=== PATIENT | female | born 1955 | race Caucasian/White ===

== ENCOUNTER 2020-11-17 10:00 | Emergency (ER) | payer BC, OTHER ==
[2020-11-17] MEDS ORDERED: Ketorolac 30 MG/ML SDV IM ONE (11:25)
[2020-11-17] MEDS ORDERED: Cyclobenzaprine 10 MG Tab PO ONE (11:25)
--- NOTE | 2020-11-17 11:28 | EDM.PDOC ---
ED HPI GENERAL MEDICAL PROBLEM - General Chief Complaint: Back Pain or Injury Stated Complaint: FELL AND NOW HAS BACK PAIN AND L HAND PAIN Time Seen by Provider: 11/17/20 11:22 Source of Information: Reports: Patient, Family, RN Notes Reviewed History Limitations: Reports: No Limitations - History of Present Illness INITIAL COMMENTS - FREE TEXT/NARRATIVE: 65-year-old female presents emergency department day complaint of back pain and right hand pain, she injured herself about 3 days ago when she fell at home she was consuming alcohol at the time. She initially presented to the clinic but was referred to the emergency department because of her level of pain. She states she is breathing okay but it hurts to take a deep breath back pain is positional and the hand has full range of motion but is painful does have a history of compression fracture she recently moved here from the [facility]. Lower Back Pain Score (Numeric/FACES): 10 - Related Data Allergies Allergy/AdvReac Type Severity Reaction Status Date / Time No Known Allergies Allergy Verified 11/17/20 11:08 Home Meds: Home Meds Calcium Carb/Vitamin D3/Vit K1 [Citracal Soft Chew] 630 mg PO ASDIRECTED 10/14/15 [History] Cholecalciferol (Vitamin D3) [Vitamin D3] 1 tab PO TID 10/14/15 [History] Cyanocobalamin (Vitamin B-12) [Vitamin B-12] 1 injection IM ASDIRECTED 10/14/15 [History] Multivitamin [Multivitamins] 1 tab PO BID 10/14/15 [History] Topiramate 2 tab PO BID 10/14/15 [History] Venlafaxine [Effexor] 1 tab PO DAILY 10/14/15 [History] hydroCHLOROthiazide [Hydrochlorothiazide] 1 tab PO DAILY 10/14/15 [History] SUMAtriptan succinate [Imitrex] 100 mg PO BID PRN 11/17/20 [History] Past Medical History Cardiovascular History: Reports: High Cholesterol [employer]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: Reports: 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, Other (See Below) 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 Musculoskeletal History: Reports: Arthritis, Back Pain, Chronic, Fracture, Osteoporosis Neurological History: Reports: Other (See Below) Other Neuro History: fx spine Oncologic (Cancer) History: Reports: Other (See Below) Other Oncologic History: skin cancer on chest - Past Surgical History HEENT Surgical History: Reports: LASIK, Tonsillectomy GI Surgical History: Reports: Bariatric Procedure, Chuck Fundoplication Female Surgical History: Reports: Hysterectomy, Tubal Ligation Neurological Surgical History: Reports: Thoracic Spine Musculoskeletal Surgical History: Reports: Shoulder Surgery, Other (See Below) Other Musculoskeletal Surgeries/Procedures:: left wrist fx repair, left wrist tendinitis with removal of scar tissue, right and left foot bunion, right forearm fx repair, Social & Family History - Tobacco Use Tobacco Use Status *Q: Never Tobacco User Second Hand Smoke Exposure: No - Caffeine Use Caffeine Use: Reports: None - Recreational Drug Use Recreational Drug Use: No ED ROS GENERAL - Review of Systems Review Of Systems: See Below Constitutional: Reports: No Symptoms HEENT: Reports: No Symptoms Respiratory: Reports: No Symptoms Cardiovascular: Reports: No Symptoms GI/Abdominal: Reports: No Symptoms Musculoskeletal: Reports: Back Pain, Hand Pain ED EXAM,LOWER BACK PAIN/INJURY - Physical Exam Exam: See Below Text/Narrative:: Examination of the left hand she has full range of motion of all digits radial pulses +2 there is some bruising which can be appreciated over the medic carpal region #5, examination of the back reveals symmetrical respirations there is no point tenderness spinally she is tender paraspinally thoracic region T10-T12 Exam Limited By: No Limitations General Appearance: Alert, WD/WN, No Apparent Distress Respiratory/Chest: No Respiratory Distress Course - Vital Signs Last Recorded V/S: Last Vital Signs Temp 97.4 F 11/17/20 11:18 Pulse 62 11/17/20 12:31 Resp 16 11/17/20 11:18 BP 115/58 L 11/17/20 12:31 Pulse Ox 97 11/17/20 12:31 - Orders/Labs/Meds Orders: Active Orders 24 hr Category Date Time Status Hand Comp Min 3V Lt [CR] Stat Exams 11/17/20 11:25 Taken Meds: Medications Discontinued Medications Generic Name Dose Route Start Last Admin Trade Name Thiago PRN Reason Stop Dose Admin Cyclobenzaprine HCl 10 mg 11/17/20 11:25 11/17/20 11:41 Cyclobenzaprine 10 Mg Tab PO 11/17/20 11:26 10 mg ONETIME ONE Administration Hydromorphone HCl 1 mg 11/17/20 12:29 11/17/20 12:49 Hydromorphone 1 Mg/Ml Syringe IM 11/17/20 12:30 1 mg ONETIME ONE Administration Ketorolac Tromethamine 30 mg 11/17/20 11:25 11/17/20 11:42 Ketorolac 30 Mg/Ml Sdv IM 11/17/20 11:26 30 mg ONETIME ONE Administration Departure - Departure Time of Disposition: 13:33 Disposition: Home, Self-Care 01 Condition: Fair Clinical Impression: Leg pain, left - Discharge Information Referrals: PCP,None [Primary Care Provider] - Forms: ED Department Discharge Additional Instructions: Keep your follow-up appointments with your primary care, general surgery and the vascular interventionalists including [facility] call return to the emergency department with worsening of symptoms Sepsis Event Note (ED) - Evaluation Sepsis Screening Result: No Definite Risk - Focused Exam Vital Signs: Vital Signs Temp Pulse Resp BP Pulse Ox 11/17/20 12:31 62 115/58 L 97 11/17/20 11:18 97.4 F 73 16 115/65 96 11/17/20 11:06 97.4 F 73 16 115/65 96 - My Orders Last 24 Hours: My Active Orders 11/17/20 11:25 Hand Comp Min 3V Lt [CR] Stat - Assessment/Plan Last 24 Hours: My Active Orders 11/17/20 11:25 Hand Comp Min 3V Lt [CR] Stat Plan: Assessment Acuity = acute Site and laterality = left leg pain Etiology = unknown Manifestations = none Location of injury = Home Lab values = ultrasound was negative for any DVT official read radiologist pending Plan I did review unofficial ultrasound results from follow-up with his primary care ongoing leg pain he does have known peripheral vascular disease he is following a vascular surgery in the [facility] as well This note was dictated using Listen Edition voice recognition software please call with any questions on syntax or grammar.
[2020-11-17] MEDS ORDERED: HYDROmorphone 1 MG/ML Syringe IM ONE (12:29)
[2020-11-17 12:31] VITALS: BP 115/58; PULSE 62
--- NOTE | 2020-11-17 13:07 | CR ---
Thoracic Spine 3V CLINICAL HISTORY: Fall, pain FINDINGS: There is some mild biconcave compression deformity of T10 of uncertain chronology. Patient has a a previous T11 vertebroplasty. There is a moderate to compression deformity of T12. Chronology is uncertain there is some mild diffuse degenerative disc changes. There is a grade 1 anterolisthesis of T4 on T5. There is mild osteophytosis. The pedicles are unremarkable. Impression: Multiple compression deformities of the lower thoracic spine T11 vertebroplasty Grade 1 anterolisthesis of T4 on T5
--- NOTE | 2020-11-17 14:09 | CR ---
Hand Comp Min 3V Lt CLINICAL HISTORY: Fall, pain FINDINGS: There is no acute fracture or dislocation of the hand. There is moderate osteoarthritic change at the base of the first metacarpal as well as scaphoid. There is appears to have had resection of the trapezium. IMPRESSION: No acute fracture Apparent resection of the trapezium with severe osteoarthritic change at the base of the first metacarpal
== END 2020-11-17 14:33 | disposition home or self-care (01) ==
LOC: JP.ED 10:00
DX: M79.605 Pain in left leg (principal); E78.00 Pure hypercholesterolemia, unspecified; Z79.899 Other long term (current) drug therapy
CPT/HCPCS: 72072; 73130; 96372; 99283; A9270; J1170; J1885

== ENCOUNTER 2021-03-12 09:42 | Emergency (ER) | payer OTHER ==
[2021-03-12 10:05] VITALS: BP 106/56; PULSE 65
--- NOTE | 2021-03-12 10:11 | EDM.PDOC ---
ED HPI GENERAL MEDICAL PROBLEM - General Chief Complaint: Chest Pain Stated Complaint: POSSIBLE SIGNS OF HEART ATTACK Time Seen by Provider: 03/12/21 10:09 Source of Information: Reports: Patient, Old Records, RN History Limitations: Reports: No Limitations - History of Present Illness INITIAL COMMENTS - FREE TEXT/NARRATIVE: 65 yo female presents after a 2nd spell in 2 weeks that were both characterized by sudden onset of CP at rest that lasted only a few minutes. These spells were not associated with nausea or SOB or diaphoresis. Today she describes that the pain went to her R jaw and L arm. She had transient R flank pain. She had a fleeting fairly severe POTTS. All of these sx's are now completely gone without any treatment. She was not seen after the first spell. She has a strong FHx of CAD with her father having an WA in his mid 60's. She is not a smoker, has no DM or HTN, has a cholesterol of 300 and an HDL of 100. She has no personal hx of CAD. Onset: Today, Sudden Onset Date: 03/12/21 Duration: Minutes:, Resolved Prior to Arrival Location: Reports: Head, Face, Neck, Chest, Back Quality: Reports: Ache (head), Pressure (chest) Severity: Moderate (chest) Improves with: Reports: Other (time) Worsens with: Reports: Other (unknown trigger) Context: Reports: Other (See HPI) Associated Symptoms: Reports: Chest Pain, Headaches. 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) Back Pain Score (Numeric/FACES): 2 - Related Data Allergies Allergy/AdvReac Type Severity Reaction Status Date / Time No Known Allergies Allergy Verified 03/12/21 10:05 Home Meds: Home Meds Calcium Carb/Vitamin D3/Vit K1 [Citracal Soft Chew] 630 mg PO ASDIRECTED 10/14/15 [History] Cholecalciferol (Vitamin D3) [Vitamin D3] 1 tab PO DAILY 10/14/15 [History] Multivitamin [Multivitamins] 1 tab PO BID 10/14/15 [History] Topiramate 50 tab PO BID 10/14/15 [History] Venlafaxine [Effexor] 75 tab PO DAILY 10/14/15 [History] hydroCHLOROthiazide [Hydrochlorothiazide] 12.5 tab PO DAILY 10/14/15 [History] SUMAtriptan succinate [Imitrex] 100 mg PO BID PRN 11/17/20 [History] Cyanocobalamin/Cobamamide [Vitamin B-12 5,000 Mcg Tab Sl] 1 tab SL DAILY 03/12/21 [History] Past Medical History Cardiovascular History: Reports: High Cholesterol 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: 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, Other (See Below) 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 Musculoskeletal History: Reports: Arthritis, Back Pain, Chronic, Fracture, Osteoporosis Neurological History: Reports: Other (See Below) Other Neuro History: fx spine Oncologic (Cancer) History: Reports: Other (See Below) Other Oncologic History: skin cancer on chest - Past Surgical History HEENT Surgical History: Reports: LASIK, Tonsillectomy GI Surgical History: Reports: Bariatric Procedure, Chuck Fundoplication Female Surgical History: Reports: Hysterectomy, Tubal Ligation Neurological Surgical History: Reports: Thoracic Spine Musculoskeletal Surgical History: Reports: Shoulder Surgery, Other (See Below) Other Musculoskeletal Surgeries/Procedures:: left wrist fx repair, left wrist tendinitis with removal of scar tissue, right and left foot bunion, right forearm fx repair, Social & Family History - Caffeine Use Caffeine Use: Reports: None ED ROS GENERAL - Review of Systems Review Of Systems: See Below Constitutional: Reports: No Symptoms. Denies: Diaphoresis HEENT: Reports: No Symptoms Respiratory: Reports: No Symptoms Cardiovascular: Reports: Chest Pain Endocrine: Reports: No Symptoms GI/Abdominal: Reports: No Symptoms. Denies: Nausea Musculoskeletal: Reports: Back Pain (R flank), Other (R jaw) Skin: Reports: No Symptoms. Denies: Diaphoresis Neurological: Reports: Headache Psychiatric: Reports: No Symptoms ED EXAM, GENERAL - Physical Exam Exam: See Below Exam Limited By: No Limitations General Appearance: Alert, WD/WN, No Apparent Distress Eye Exam: Bilateral Eye: Normal Inspection Ears: Normal External Exam, Normal Canal, Hearing Grossly Normal, Normal TMs Ear Exam: Bilateral Ear: Auricle Normal, Canal Normal, TM normal Nose: Normal Inspection, No Blood Throat/Mouth: Normal Inspection, Normal Lips, Normal Oropharynx, Normal Voice, No Airway Compromise Head: Atraumatic, Normocephalic Neck: Normal Inspection, Supple, Non-Tender Respiratory/Chest: No Respiratory Distress, Lungs Clear, Normal Breath Sounds, No Accessory Muscle Use Cardiovascular: Regular Rate, Rhythm, No Edema GI/Abdominal: Normal Bowel Sounds, Soft, Non-Tender, No Distention. No: Distended, Tender Back Exam: Normal Inspection. No: CVA Tenderness (R), CVA Tenderness (L) Extremities: Normal Inspection, Normal Range of Motion, Non-Tender, No Pedal Edema Neurological: Alert, Oriented, CN II-XII Intact, Normal Cognition, No Motor/Sensory Deficits Psychiatric: Normal Affect, Normal Mood Skin Exam: Warm, Dry, Intact, Normal Color, No Rash #1 Interpretation EKG Date: 03/12/21 Time: 10:05 Rhythm: NSR Rate (Beats/Min): 65 Hagaman: Normal P-Wave: Present QRS: Normal ST-T: Normal QT: Normal Comparison: NA - No Prior EKG Course - Vital Signs Last Recorded V/S: Last Vital Signs Temp 36.7 C 03/12/21 09:58 Pulse 65 03/12/21 09:58 Resp 16 03/12/21 09:58 BP 106/56 L 03/12/21 09:58 Pulse Ox 99 03/12/21 09:58 - Orders/Labs/Meds Orders: Active Orders 24 hr Category Date Time Status Cardiac Monitoring [RC] .As Directed Care 03/12/21 09:45 Active UA W/MICROSCOPIC [URIN] Stat Lab 03/12/21 10:33 Ordered EKG 12 Lead [EK] Routine Ther 03/12/21 09:45 Ordered Labs: Laboratory Tests 03/12/21 Range/Units 09:56 Troponin I High Sens 10.9 (<=60.3) pg/mL Meds: Medications Discontinued Medications Generic Name Dose Route Start Last Admin Trade Name Thiago PRN Reason Stop Dose Admin Aspirin 324 mg 03/12/21 10:34 Aspirin 81 Mg Tab.Chew PO 03/12/21 10:35 ONETIME ONE - Re-Assessments/Exams Free Text/Narrative Re-Assessment/Exam: 03/12/21 10:43 Declined the offer of ASA due to her hx of Sang-N-Y gastric bypass Departure - Departure Time of Disposition: 10:55 Disposition: Home, Self-Care 01 Condition: Good Clinical Impression: Atypical chest pain Instructions: Nonspecific Chest Pain, Adult, [id number] Referrals: PCP,None [Primary Care Provider] - Forms: ED Department Discharge Additional Instructions: Call [facility] on Monday morning for an appt [phone]. Take your blood test, ER record and EKG along to your appt. We were not able to make an appt for you today as their office was closed. Return to the ER promptly if your symptoms return. Sepsis Event Note (ED) - Evaluation Sepsis Screening Result: No Definite Risk - Focused Exam Vital Signs: Vital Signs Temp Pulse Resp BP Pulse Ox 03/12/21 09:58 36.7 C 65 16 106/56 L 99 - My Orders Last 24 Hours: My Active Orders 03/12/21 09:45 Cardiac Monitoring [RC] .As Directed EKG 12 Lead [EK] Routine 03/12/21 10:33 UA W/MICROSCOPIC [URIN] Stat - Assessment/Plan Last 24 Hours: My Active Orders 03/12/21 09:45 Cardiac Monitoring [RC] .As Directed EKG 12 Lead [EK] Routine 03/12/21 10:33 UA W/MICROSCOPIC [URIN] Stat
[2021-03-12] MEDS ORDERED: Aspirin 81 MG Tab.Chew PO ONE (10:34)
== END 2021-03-12 11:15 | disposition home or self-care (01) ==
LOC: JP.ED 09:42
DX: R07.89 Other chest pain (principal); Z79.899 Other long term (current) drug therapy; Z90.710 Acquired absence of both cervix and uterus
CPT/HCPCS: 36415; 81001; 84484; 93005; 99285-25

== ENCOUNTER 2022-02-08 09:38 | Emergency (ER) | payer MEDICARE, OTHER ==
[2022-02-08 10:09] VITALS: BP 121/76; PULSE 77
== END 2022-02-08 11:28 | disposition home or self-care (01) ==
LOC: JP.ED 09:38
DX: S60.222A Contusion of left hand, initial encounter (principal); I10 Essential (primary) hypertension; Z86.16 Personal history of COVID-19; W22.09XA Striking against other stationary object, initial encounter
CPT/HCPCS: 73130-26-LT; 73130-LT; 99283